=== PATIENT | male | born 1985 | race Two or more races ===

== ENCOUNTER 2024-01-05 14:00 | Emergency (ER) | payer SELFPAY ==
[2024-01-05 14:06] VITALS: BP 128/83; PULSE 89; RESP 20; TEMP 36.9; O2SAT 97; BMI 26.6
--- NOTE | 2024-01-05 14:17 | CRLHL7_ITS ---
For Patients: As a result of the Cures Act, medical imaging exams and procedure reports are released immediately into your electronic medical record. You may view this report before your referring provider. If you have questions, please contact your health care provider. Indication: injury Technique: Two views of the left forearm. Comparison: None. Findings: Metallic nail projects over the soft tissues of the volar aspect of the distal forearm. No acute displaced fracture or malalignment. Impression: Metallic nail projects over the soft tissues of the volar aspect of the distal forearm. No acute displaced fracture or malalignment. Dictated by Lg Bloom MD @ 01/05/2024 3:01:05 PM (Electronically Signed)
--- NOTE | 2024-01-05 14:18 | ED.GENADULT ---
HPI - General Adult General Chief complaint: Extremity Pain/Injury, Lower Stated complaint: LT wrist trauma with automatic nail gun Time Seen by Provider: 01/05/24 14:12 History of Present Illness HPI narrative: This 38-year-old male comes in with a nail stuck into his left forearm. Apparently a nail gun was Mr. Kumari and is lodged into the volar aspect of his left forearm. He states that he is not able to move his hand since then. The nail is rather fixed in his position in his forearm and is therefore suspicious as imbedded into the forearm bone. Related Data Previous Rx's ?Medication ?Instructions ?Recorded cephalexin 500 mg capsule 500 mg PO TID 5 days #15 caps 01/05/24 hydrocodone 5 mg-acetaminophen 325 1 tab PO Q4-6H PRN pain #6 tabs 01/05/24 mg tablet Allergies Allergy/AdvReac Type Severity Reaction Status Date / Time No Known Drug Allergies Allergy Verified 01/05/24 14:08 Review of Systems Status of ROS: Reports: 10 or more systems reviewed and unremarkable except as noted in History and below Narrative: Constitutional: No fevers, no weight gain or loss. Eyes: No discharge. No vision changes. HENT: No congestion, no sore throat, no ear pain. Cardiovascular: No chest pain, no palpitations. Respiratory: No shortness of breath, no wheezes, no cough. Gastrointestinal: No abdominal pain, no vomiting, no diarrhea. Genitourinary: No dysuria, no hematuria. Musculoskeletal: Left forearm injury. Skin: No rashes, no pruritis. Neurological: No dizziness, weakness, sensory change, speech change. Endo/Heme/Allergies: No bruising or bleeding. No polydipsia. Pysch: no suicidality, no anxiety, no insomnia. All other systems reviewed and are negative. Exam Narrative: Exam Narrative: Constitutional: Well-developed, well-nourished. HEENT: Normocephalic, atraumatic. Neck: Normal range of motion. Nontender. Supple. Heart: Intact distal pulses. Lungs: No chest discomfort. No wheezes, rhonchi, or rales. Abdomen: Nontender. Back: Normal range of motion. Extremities: Left forearm injury with loss of motion of the fingers of his left hand has the nail is penetrating in the area of tendons at function in flexion of the fingers of the left hand. Skin: Intact. No rash. Warm. No erythema or pallor. Neurologic: No altered sensation. No weakness. Alert and oriented. Psychiatric: No suicidality. No anxiety or depression. No insomnia. Nursing notes and vitals signs are reviewed. Const: Vital Signs, click to edit/add: Vital Signs - 24 hr 01/05/24 14:06 Temperature 98.5 F Pulse Rate [Pulse Oximeter] 89 Respiratory Rate 20 Blood Pressure [Ri ght Upper Arm] 128/83 Pulse Oximetry 97 Oxygen Delivery Me thod Room Air Course Vital Signs Vital signs: Initial Vital Signs Temperature 98.5 F 01/05/24 14:06 Temperature Source Temporal Artery Scan 01/05/24 14:06 Pulse Rate 89 01/05/24 14:06 Respiratory Rate 20 01/05/24 14:06 Blood Pressure 128/83 01/05/24 14:06 Blood Pressure Mean 98 01/05/24 14:06 Blood Pressure Position Sitting 01/05/24 14:06 Pulse Oximetry 97 01/05/24 14:06 Oxygen Delivery Method Room Air 01/05/24 14:06 Vital Signs Temperature 98.5 F 01/05/24 14:06 Pulse Rate 89 01/05/24 14:06 Respiratory Rate 20 01/05/24 14:06 Blood Pressure 128/83 01/05/24 14:06 Pulse Oximetry 97 01/05/24 14:06 Oxygen Delivery Method Room Air 01/05/24 14:06 Temperature 98.5 F 01/05/24 14:06 Pulse Rate 89 01/05/24 14:06 Respiratory Rate 20 01/05/24 14:06 Blood Pressure 128/83 01/05/24 14:06 Pulse Oximetry 97 01/05/24 14:06 Oxygen Delivery Method Room Air 01/05/24 14:06 Medications Administered Medications: Generic Name Dose Route Start Last Admin Trade Name Freq PRN Reason Stop Dose Admin Lidocaine HCl 30 ml 01/05/24 14:17 01/05/24 14:19 Lidocaine 1 % Pf 30 Ml INJECTION 30 ml ONCE PRN Administration Discontinued Medications Generic Name Dose Route Start Last Admin Trade Name Freq PRN Reason Stop Dose Admin Hydrocodone Bitart/Acetaminophen 1 tab 01/05/24 14:48 01/05/24 14:53 Hydrocodone-Acetamin 5-325 Mg 1 Tab PO 01/05/24 14:49 1 tab ONCE ONE Administration Diphtheria/Tetanus/Acell Pertussis 0.5 ml 01/05/24 15:18 01/05/24 15:25 Tetanus/Diphth/Pertussis 0.5 Ml Syringe IM 01/05/24 15:19 0.5 ml .ONCE ONE Administration Medical Decision Making MDM Narrative Medical decision making narrative: This 38-year-old male comes in with a nail imbedded in his left forearm. This was from a nail gun that was missed directed. He is unable to extend his fingers due to pain and tendon dysfunction. An x-ray is obtained and shows evidence of the nail imbedded but there is no contact with either of his forearm bones. The I did provide anesthesia with 1% lidocaine and then removed the nail without difficulty. He immediately had adventist of normal range of motion of his fingers and sensation is also intact throughout this time. The patient is unsure of his tetanus status and no information was found by nurses in this regard. He did receive a tetanus vaccination here and an oral tablet of Thorp for pain relief. He is okay to be discharged home. I did provide prescription for few days of Keflex and a few tablets of Thorp. Imaging Data XR L Forearm: Radiologist's impression: Metallic nail projects over the soft tissues of the volar aspect of the distal forearm. No acute displaced fracture or malalignment. Discharge Plan Discharge Clinical Impression: Foreign body (FB) in soft tissue Patient Disposition: Home w/ Parent or Adult Condition: Improved Additional Instructions: [place] los medicamentos seg?n lo prescrito. Incrementar la actividad seg?n lo tolere. John un seguimiento con el regreso del m?dico si empeora. Take medication as prescribed. Increase activity as tolerated. Follow up with MD return if worsening. Prescriptions: New hydrocodone-acetaminophen 5-325 mg tablet 1 tab PO Q4-6H PRN (Reason: pain) Qty: 6 0RF cephalexin 500 mg capsule 500 mg PO TID 5 Days Qty: 15 0RF Stand Alone Forms: MyHealth Info Instructions
[2024-01-05] MEDS: LIDOCAINE 1 % PF 30 ML INJECTION (14:19)
[2024-01-05] MEDS: HYDROCODONE-ACETAMIN 5-325 MG 1 TAB PO (14:53)
[2024-01-05] MEDS: TETANUS/DIPHTH/PERTUSSIS 0.5 ML SYRINGE IM (15:25)
== END 2024-01-05 16:11 | disposition home or self-care (01) ==
PROVIDERS: Emergency Provider Emergency Medicine Emergency Medical Services; Visit Provider Emergency Medicine Emergency Medical Services
DX: S51.842A Puncture wound with foreign body of left forearm, initial encounter (principal); W29.4XXA Contact with nail gun, initial encounter
CPT/HCPCS: 10120; 73090; 90471; 90715; 99283; 99284; A9270; J2003